=== PATIENT | female | born 1995 ===

== ENCOUNTER 2024-10-23 08:38 | Outpatient (CLI) | payer OTHER ==
[2024-10-23] MEDS ORDERED: Sincalide 5 MCG VIAL ONE (10:15)
[2024-10-23] MEDS ORDERED: Bacteriostatic Normal Saline 30 ML VIAL ONE (10:16)
== END 2024-10-23 08:39 | disposition home or self-care (01) ==
LOC: NM 08:38
PROVIDERS: ATTEND Surgery
DX: R14.0 Abdominal distension (gaseous) (principal); K82.8 Other specified diseases of gallbladder
CPT/HCPCS: 78227; A9537; J2805